=== PATIENT | male | born 1990 | race Caucasian/White ===

== ENCOUNTER → 2023-04-04 | Outpatient (CLI) | payer OTHER ==
--- NOTE | 2023-04-04 19:09 | MR ---
EXAMINATION TYPE: MR brain wo con DATE OF EXAM: 04/04/2023 COMPARISON: NONE HISTORY: 33-year-old male Past history of childhood seizures, new onset tremors starting in legs. G4 0.209 LOCAL-REL SYMPTC EPI W CMPLX PRT SEIZ,NOT TECHNIQUE: Multiplanar, multisequence images of the brain and brainstem were acquired without IV con trast. Diffusion weighted imaging is performed. FINDINGS: No evidence for acute infarction, hemorrhage, mass, mass effect, midline shift, herniation, effacemen t of basal cisterns, or extra-axial fluid collection. The ventricles and sulci are age-appropriate. Major intracranial flow voids are intact. Dominant left vertebral artery. T2/FLAIR weighted sequences show no white matter signal abnormality. No bellamy matter heterotopia is seen. Symmetric hippocampal and forniceal volumes. Midline structures demonstrate normal morphology. The craniocervical junction is normal. Post contrast images demonstrate no evidence of pathologic enhancement. Dural venous sinuses are pat ent. Mild mucosal thickening ethmoid air cells. Globes are intact. While the mastoid air cells are well-pn eumatized, there is some fluid on the right, likely within a pneumatized petrous apex. IMPRESSION: 1. No intracranial abnormality seen. 2. Some fluid on the right likely within a pneumatized petrous apex. Questionable clinical significan ce, correlate for any potential symptoms of petrous apicitis. 3. Mild chronic ethmoid sinus disease.
== END | disposition home or self-care (01) ==
LOC: RADMRIMAIN 11:31
PROVIDERS: ATTEND Internal Medicine
DX: G40.209 Localization-related (focal) (partial) symptomatic epilepsy and epileptic syndromes with complex partial seizures, not intractable, without status epilepticus (principal); J32.2 Chronic ethmoidal sinusitis
CPT/HCPCS: 70551

== ENCOUNTER 2023-04-21 06:26 | Emergency (ER) | payer OTHER ==
[2023-04-21 06:30] LABS: Glucose,Whole Blood 99 mg/dL (70-110)
--- NOTE | 2023-04-21 07:32 | ED ---
General Adult HPI - General Chief complaint: Seizure Stated complaint: Seizures Time Seen by Provider: 04/21/23 07:07 Source: patient, family, EMS Mode of arrival: EMS Limitations: no limitations - History of Present Illness Initial comments: Dictation was produced using [employer] dictation software. please excuse any grammatical, word or spelling errors. Chief Complaint: 33-year-old male presents emergency department for alleged seizure History of Present Illness: 33-year-old male presents emergency Department alleged seizure. Patient woke up this morning noticed that he started having some shaking activities. States it started from his legs. He notices it. Shortly after he was told that he had a seizure. Patient reports that this is secondary episode. His first episode was couple months ago. He had seizures as a child. Patient has no complaints at this time. Denies any tongue pain. Denies any bowel or bladder incontinence. Patient has an appointment with neurology next month. He was seen by his primary care physician after the first episode. The ROS documented in this emergency department record has been reviewed and confirmed by me. Those systems with pertinent positive or negative responses have been documented in the HPI. All other systems are other negative and/or noncontributory. - Related Data Previous Rx's Medication Instructions Recorded levETIRAcetam [Keppra] 500 mg PO Q12HR 21 Days #42 tab 04/21/23 Allergies Allergy/AdvReac Type Severity Reaction Status Date / Time Penicillins Allergy Unknown Verified 04/21/23 06:34 Childhood Review of Systems ROS Statement: Those systems with pertinent positive or pertinent negative responses have been documented in the HPI. ROS Other: All systems not noted in ROS Statement are negative. Past Medical History Additional Past Medical History / Comment(s): childhood seizures History of Any Multi-Drug Resistant Organisms: None Reported Additional Past Surgical History / Comment(s): femur surgery as a child Past Psychological History: No Psychological Hx Reported Smoking Status: Current every day smoker Past Alcohol Use History: Daily Past Drug Use History: Marijuana General Exam - General Exam Comments Initial Comments: PHYSICAL EXAM: General Impression: Alert and oriented x3, not in acute distress HEENT: Normocephalic atraumatic, extra-ocular movements intact, pupils equal and reactive to light bilaterally, mucous membranes moist. Cardiovascular: Heart regular rate and rhythm Chest: Able to complete full sentences, no retractions, no tachypnea Abdomen: abdomen soft, non-tender, non-distended, no organomegaly Musculoskeletal: Pulses present and equal in all extremities, no peripheral patti a Motor: no focal deficits noted Neurological: CN II-XII grossly intact, no focal motor or sensory deficits noted Skin: Intact with no visualized rashes Psych: Normal affect and mood Limitations: no limitations Course Vital Signs 04/21/23 04/21/23 04/21/23 06:28 08:15 09:08 Temperature 97.6 F 97.9 F Pulse Rate 88 75 72 Respiratory 16 16 17 Rate Blood Pressure 136/91 114/82 121/82 O2 Sat by Pulse 93 L 100 97 Oximetry 04/21/23 11:06 Temperature Pulse Rate 79 Respiratory 18 Rate Blood Pressure 121/74 O2 Sat by Pulse 97 Oximetry EKG Findings - EKG Comments: EKG Findings:: My EKG interpretation: Ventricular rate 88, sinus rhythm,. 156, QRS 89, QTc 380. No SD prolongation, no QTC prolongation, no ST or T-wave changes noted. Overall, this EKG is unremarkable Medical Decision Making - Medical Decision Making Was pt. sent in by a medical professional or institution (, PA, [employer], urgent care, hospital, or intermediate...) When possible be specific @ -No Did you speak to anyone other than the patient for history (EMS, parent, family, police, friend...)? What history was obtained from this source @ -No Did you review nursing and triage notes (agree or disagree)? Why? @ -I reviewed and agree with nursing and triage notes Were old charts reviewed (outside hosp., previous admission, EMS record, old EKG, old radiological studies, urgent care reports/EKG's, intermediate records)? Report findings @ -No old charts were reviewed Differential Diagnosis (chest pain, altered mental status, abdominal pain women, abdominal pain men, vaginal bleeding, musculoskeletal, weakness, fever, dyspnea, syncope, headache, dizziness, GI bleed, back pain, seizure, CVA, palpatations, mental health)? @ -Differential Seizure: Recurrent seizure disorder, febrile seizure, alcohol withdrawal, stimulants, meningitis, encephalitis, intercranial hemorrhage, intracranial tumor, stroke, eclampsia, thyrotoxicosis, hypocalcemia, hyponatremia, hypernatremia, hypomagnesemia, psychogenic, this is not meant to be an all-inclusive list. EKG interpreted by me (3pts min.). @ -See above X-rays interpreted by me (1pt min.). @ -None done CT interpreted by me (1pt min.). @ -Computed tomography scan of the brain is unremarkable for acute processes U/S interpreted by me (1pt. min.). @ -None done What testing was considered but not performed or refused? (CT, X-rays, U/S, labs)? Why? @ -None What meds were considered but not given or refused? Why? @ -None Did you discuss the management of the patient with other professionals (audrey guthrie i.e. , PA, [employer], lab, RT, psych nurse, social services, canopy inspector, teacher, chief accounting officer, special education case manager)? Give summary @ -Case discussed with neurologist, Dr. Tyler were evaluated the patient and elected to start patient on Keppra. He did recommend discharged follow-up with his outpatient physicians Was smoking cessation discussed for >3mins.? @ -No Was critical care preformed (if so, how long)? @ -No Were there social determinants of health that impacted care today? How? (Ho melessness, low income, unemployed, alcoholism, drug addiction, transportation, low edu. Level, literacy, decrease access to med. care, assisted, rehab)? @ -No Was there de-escalation of care discussed even if they declined (Discuss DNR or withdrawal of care, Hospice)? DNR status @ -No What co-morbidities impacted this encounter? (DM, HTN, Smoking, COPD, CAD, Cancer, CVA, ARF, Chemo, Hep., AIDS, mental health diagnosis, sleep apnea, morbid obesity)? @ -None Was patient admitted / discharged? Hospital course, mention meds given and route, prescriptions, significant lab abnormalities, going to OR and other pertinent info. @ -33-year-old male with history of pediatric seizures presents to ER for recurrence of seizure after being seizure free from age of 11 until earlier this year. Some history obtained from the at bedside who witnessed the event states that he was postictal for several minutes. Vital signs upon arrival are within acceptable limits. Physical examination is benign at bedside. Laboratory evaluation remarkable. CT on remarkable. Patient evaluated at the bedside by Dr. Vera neurology recommended patient's be started on Keppra 500 mg twice a day prescription for discharge follow-up with outpatient management of seizures Undiagnosed new problem with uncertain prognosis? @ -No Drug Therapy requiring intensive monitoring for toxicity (Heparin, Nitro, Insulin, Cardizem)? @ -No Were any procedures done? @ -No Diagnosis/symptom? Acute, or Chronic, or Acute on Chronic? Uncomplicated (without systemic symptoms) or Complicated (systemic symptoms)? @ -Seizure Side effects of treatment? @ -No Exacerbation, Progression, or Severe Exacerbation? @ -No Poses a threat to life or bodily function? How? (Chest pain, USA, OR, pneumonia, PE, COPD, DKA, ARF, appy, cholecystitis, CVA, Diverticulitis, Homicidal, Suicidal, threat to staff... and all critical care pts) @ -yes - Lab Data Result diagrams: 04/21/23 07:46 04/21/23 07:46 Lab Results 04/21/23 04/21/23 04/21/23 Range/Units 06:29 07:46 07:46 WBC 7.8 (3.8-10.6) k/uL RBC 4.97 (4.30-5.90) m/uL Hgb 16.1 (13.0-17.5) gm/dL Hct 47.4 (39.0-53.0) % MCV 95.3 (80.0-100.0) fL MCH 32.3 (25.0-35.0) pg MCHC 33.9 (31.0-37.0) g/dL RDW 13.0 (11.5-15.5) % Plt Count 286 (150-450) k/uL MPV 8.2 Neutrophils % 49 % Lymphocytes % 38 % Monocytes % 7 % Eosinophils % 3 % Basophils % 1 % Neutrophils # 3.8 (1.3-7.7) k/uL Lymphocytes # 3.0 (1.0-4.8) k/uL Monocytes # 0.5 (0-1.0) k/uL Eosinophils # 0.2 (0-0.7) k/uL Basophils # 0.0 (0-0.2) k/uL Sodium 137 (137-145) mmol/L Potassium 4.4 (3.5-5.1) mmol/L Chloride 104 (98-107) mmol/L Carbon Dioxide 22 (22-30) mmol/L Anion Gap 11 mmol/L BUN 9 (9-20) mg/dL Creatinine 0.96 (0.66-1.25) mg/dL Est GFR (CKD-EPI)AfAm >90 (>60 ml/min/1.73 sqM) Est GFR (CKD-EPI)NonAf >90 (>60 ml/min/1.73 sqM) Glucose 85 (74-99) mg/dL POC Glucose (mg/dL) 99 (70-110) mg/dL POC Glu Jinrikisha Driver ID Darryl Taveras Calcium 9.2 (8.4-10.2) mg/dL Magnesium 2.3 (1.6-2.3) mg/dL Disposition Clinical Impression: Generalized seizure Disposition: HOME SELF-CARE Instructions (If sedation given, give patient instructions): Recurrent Seizures in Adults (ED), Seizure/Epilepsy Discharge Instructions & Follow-Up Additional Instructions: no driving or operating heavy machinery until cleared by medical professional. f/u with PCP and neurology outpatient Prescriptions: levETIRAcetam [Keppra] 500 mg PO Q12HR 21 Days #42 tab Is patient prescribed a controlled substance at d/c from ED?: No Referrals: None,Stated [Primary Care Provider] - 1-2 days Time of Disposition: 11:31
[2023-04-21 07:58] LABS: Basophils % (A) 1 %; Eosinophils # (A) 0.2 k/uL (0-0.7); Eosinophils % (A) 3 %; HCT 47.4 % (39.0-53.0); HGB 16.1 gm/dL (13.0-17.5); Lymphocytes % (A) 38 %; MCH 32.3 pg (25.0-35.0); MCHC 33.9 g/dL (31.0-37.0); MCV 95.3 fL (80.0-100.0); Mean Platelet Volume 8.2; Monocytes # (A) 0.5 k/uL (0-1.0); Monocytes % (A) 7 %; Neutrophils # (A) 3.8 k/uL (1.3-7.7); Neutrophils % (A) 49 %; Platelet Count 286 k/uL (150-450); RBC 4.97 m/uL (4.30-5.90); WBC 7.8 k/uL (3.8-10.6)
[2023-04-21 08:07] LABS: African American GFR (CKD) >90 (>60 ml/min/1.73 sqM); Anion Gap 11 mmol/L; Blood Urea Nitrogen 9 mg/dL (9-20); Calcium 9.2 mg/dL (8.4-10.2); Carbon Dioxide 22 mmol/L (22-30); Chloride 104 mmol/L (98-107); Glucose 85 mg/dL (74-99); Magnesium 2.3 mg/dL (1.6-2.3); Non-African American GFR(CKD) >90 (>60 ml/min/1.73 sqM); Potassium 4.4 mmol/L (3.5-5.1); Sodium 137 mmol/L (137-145)
--- NOTE | 2023-04-21 08:22 | CT ---
EXAMINATION TYPE: CT brain wo con DATE OF EXAM: 04/21/2023 COMPARISON: None HISTORY: 33-year-old male seizure TECHNIQUE: Examination was done in axial plane without intravenous contrast. Coronal and sagittal r econstructions performed. CT DLP: 1040.4 mGycm Automated exposure control for dose reduction was used. FINDINGS: There is no evidence of acute intracranial hemorrhage, acute ischemic changes, mass, mass-effect, or extra-axial fluid collection. There is no effacement of cerebral sulci or basal subarachnoid cister ns. There is no hydrocephalus. There is no midline shift. Gutierres-white matter distinction is preserv ed. Paranasal sinuses and mastoid air cells well pneumatized. Orbits and globes are intact. IMPRESSION: No acute intracranial abnormality seen.
[2023-04-21] MEDS ORDERED: levETIRAcetam IV 500 MG/5 ML VIAL IVP STA (11:18)
[2023-04-21 12:11] VITALS: BP 124/77; PULSE 71; RESP 16; TEMP 98.2
[2023-04-21 12:31] LABS: Amphetamine Screen,Urine Not Detected (NotDetected); Barbiturate Screen,Urine Not Detected (NotDetected); Benzodiazepines Screen,Urine Not Detected (NotDetected); Cocaine Screen,Urine Not Detected (NotDetected); Methadone Screen, Urine Not Detected (NotDetected); Opiate Screen,Urine Not Detected (NotDetected); Oxycodone Screen, Urine Not Detected (NotDetected); Phencyclidine Screen,Urine Not Detected (NotDetected); Tricyclic Antidepressant,Urine Not Detected (NotDetected); Urn Cannabinoid Scrn Detected (NotDetected)
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
== END 2023-04-21 12:20 | disposition home or self-care (01) ==
LOC: EC 06:26
DX: G40.409 Other generalized epilepsy and epileptic syndromes, not intractable, without status epilepticus (principal); F12.90 Cannabis use, unspecified, uncomplicated; F17.200 Nicotine dependence, unspecified, uncomplicated; Z88.0 Allergy status to penicillin
CPT/HCPCS: 36415; 93005; 80048; 83735; 85025; 80306; 80320; 70450; 99285; 96374; J1953